=== PATIENT | male | born 1965 | race Caucasian/White ===

== ENCOUNTER 2019-10-11 15:52 | Emergency (ER) | payer OTHER ==
--- NOTE | 2019-10-11 15:54 | ERPHSYRPT ---
- History of Present Illness Time Seen by Provider: 10/11/19 15:54 Historian: patient Exam Limitations: no limitations Physician History: 54 y/o white male with no documented h/o cardiac dz. pt is currently being worked up by his pcp dr. Casillas and dr. gutierrez his guest relations associate for evaluation of dizziness. pt states he was feeling odd while sitting watching tv. his heart began racing. never had any chest pain. pt denies any recent stressors and does not have anxiety d/o. he did begin two new blood pressure medications of losartan and HCTZ. he began those meds last week Timing/Duration: today Activities at Onset: none Quality: other (palpitations) Chest Pain Radiation: no radiation Severity of Pain-Max: none Severity of Pain-Current: none Modifying Factors: Improves With: nothing Associated Symptoms: palpitations Prior Chest Pain/Cardiac Workup: no prior chest pain, echocardiography, recently seen/treated Nitro Today/Relief: no nitro taken today Aspirin Treatment Today: no aspirin today Allergies/Adverse Reactions: No Known Drug Allergies Allergy (Verified 10/11/19 16:08) Home Medications: Losartan Potassium 50 mg PO DAILY 10/11/19 [History] hydroCHLOROthiazide [Hydrochlorothiazide] 12.5 mg PO DAILY 10/11/19 [History] - Review of Systems Constitutional: No Symptoms Eyes: No Symptoms Ears, Nose, & Throat: No Symptoms Respiratory: No Symptoms Cardiac: Palpitations Abdominal/Gastrointestinal: No Symptoms Genitourinary Symptoms: No Symptoms Musculoskeletal: No Symptoms Skin: No Symptoms Neurological: No Symptoms Psychological: No Symptoms Endocrine: No Symptoms Hematologic/Lymphatic: No Symptoms Immunological/Allergic: No Symptoms All Other Systems: Reviewed and Negative - Past Medical History Pertinent Past Medical History: Yes Neurological History: No Pertinent History ENT History: No Pertinent History Cardiac History: Hypertension Respiratory History: No Pertinent History Endocrine Medical History: No Pertinent History Musculoskeletal History: No Pertinent History GI Medical History: No Pertinent History History: No Pertinent History Psycho-Social History: No Pertinent History Male Reproductive Disorders: No Pertinent History - Past Surgical History Neuro Surgical History: No Pertinent History Cardiac: No Pertinent History Respiratory: No Pertinent History Gastrointestinal: No Pertinent History Genitourinary: No Pertinent History Musculoskeletal: No Pertinent History Male Surgical History: No Pertinent History - Social History Smoking Status: Never smoker - Nursing Vital Signs Nursing Vital Signs: Initial Vital Signs Temperature 97.6 F 10/11/19 15:54 Pulse Rate 112 H 10/11/19 15:54 Respiratory Rate 26 H 10/11/19 15:54 Blood Pressure 159/99 10/11/19 15:54 O2 Sat by Pulse Oximetry 100 10/11/19 15:54 Pain Scale Pain Intensity 0 - Physical Exam General Appearance: no apparent distress, alert, anxiety Eye Exam: PERRL/EOMI, eyes nml inspection Ears, Nose, Throat Exam: normal ENT inspection, moist mucous membranes Neck Exam: normal inspection, non-tender, supple, full range of motion Respiratory Exam: normal breath sounds, lungs clear, airway intact, No chest tenderness, No respiratory distress Cardiovascular Exam: regular rate/rhythm, normal heart sounds, normal peripheral pulses Gastrointestinal/Abdomen Exam: soft, normal bowel sounds, No tenderness Rectal Exam: not done Back Exam: normal inspection, normal range of motion, No CVA tenderness, No vertebral tenderness Extremity Exam: normal inspection, normal range of motion, pelvis stable Neurologic Exam: alert, oriented x 3, cooperative, larriman helper II-XII nml as tested, nml cerebellar function, nml station & gait Skin Exam: normal color, warm, dry Lymphatic Exam: No adenopathy SpO2 Interpretation: normal O2 Delivery: Room Air - Course Nursing assessment & vital signs reviewed: Yes EKG Interpreted by Me: RATE ([id number]), Sinus Rhythm, NORMAL AXIS, NORMAL INTERVALS, NORMAL QRS, Non-specific ST Changes Ordered Tests: Active Orders 24 hr Category Date Time Status Dipper Fish STAT Care 10/11/19 15:58 Active EKG-ER Only STAT Care 10/11/19 15:57 Active IV Insertion STAT Care 10/11/19 15:57 Active Pulse Oximetry (ED) STAT Care 10/11/19 15:57 Active CHEST 1 VIEW (PORTABLE) Stat Exams 10/11/19 15:58 Taken CBC W DIFF Stat Lab 10/11/19 16:03 Completed CMP Stat Lab 10/11/19 16:03 Completed D-DIMER QUANTITATIVE Stat Lab 10/11/19 16:03 Completed NT PRO BNP Stat Lab 10/11/19 16:03 Completed PROTIME WITH INR Stat Lab 10/11/19 16:03 Completed TROPONIN Q3H Lab 10/11/19 16:03 Completed TROPONIN Q3H Lab 10/11/19 19:00 Ordered TROPONIN Q3H Lab 10/11/19 22:00 Ordered TROPONIN Q3H Lab 10/12/19 01:00 Ordered TROPONIN Q3H Lab 10/12/19 04:00 Ordered Medication Summary Discontinued Medications Generic Name Dose Route Start Last Admin Trade Name Mary PRN Reason Stop Dose Admin Aspirin 324 mg 10/11/19 15:57 10/11/19 16:20 Baby Aspirin 81 Mg Chew PO 10/11/19 15:58 324 mg STAT ONE Administration Lab/Rad Data: Laboratory Result Diagrams 10/11/19 16:03 10/11/19 16:03 Laboratory Results 10/11/19 10/11/19 10/11/19 Range/Units 16:03 16:03 16:03 WBC (4.0-10.5) K/mm3 RBC (4.1-5.6) M/mm3 Hgb (12.5-18.0) gm/dl Hct (42-50) % MCV (78-100) fl MCH (26-32) pg MCHC (32-36) g/dl RDW (11.5-14.0) % Plt Count (150-450) K/mm3 MPV (7.5-11.0) fl Gran % (36.0-66.0) % Eos # (Auto) (0-0.5) Absolute Lymphs (auto) (1.0-4.6) Absolute Monos (auto) (0.0-1.3) Lymphocytes % (24.0-44.0) % Monocytes % (0.0-12.0) % Eosinophils % (0.00-5.0) % Basophils % (0.0-0.4) % Absolute Granulocytes (1.4-6.9) Basophils # (0-0.4) PT 11.2 (8.83-12.87) SECONDS INR 0.99 (0.8-3.0) D-Dimer < 215 L (215-500) ng/mL Sodium 136 L (137-145) mmol/L Potassium 3.3 L (3.5-5.1) mmol/L Chloride 99 (98-107) mmol/L Carbon Dioxide 26 (22-30) mmol/L Anion Gap 13.9 (5-15) MEQ/L BUN 14 (9-20) mg/dL Creatinine 0.90 (0.66-1.25) mg/dL Estimated GFR > 60.0 ML/MIN Glucose 127 H (74-106) mg/dL Calcium 9.7 (8.4-10.2) mg/dL Total Bilirubin 0.70 (0.2-1.3) mg/dL AST 26 (17-59) U/L ALT 15 (0-50) U/L Alkaline Phosphatase 82 (38-126) U/L Troponin I < 0.012 (0.000-0.034) ng/mL NT-Pro-B Natriuret Pep 35.3 (0-900) pg/mL Serum Total Protein 7.7 (6.3-8.2) g/dL Albumin 4.6 (3.5-5.0) g/dL 10/11/19 Range/Units 16:03 WBC 7.2 (4.0-10.5) K/mm3 RBC 4.58 (4.1-5.6) M/mm3 Hgb 15.3 (12.5-18.0) gm/dl Hct 43.5 (42-50) % MCV 95.0 (78-100) fl MCH 33.4 H (26-32) pg MCHC 35.2 (32-36) g/dl RDW 11.7 (11.5-14.0) % Plt Count 227 (150-450) K/mm3 MPV 10.0 (7.5-11.0) fl Gran % 44.1 (36.0-66.0) % Eos # (Auto) 0.12 (0-0.5) Absolute Lymphs (auto) 3.17 (1.0-4.6) Absolute Monos (auto) 0.69 (0.0-1.3) Lymphocytes % 44.0 (24.0-44.0) % Monocytes % 9.6 (0.0-12.0) % Eosinophils % 1.7 (0.00-5.0) % Basophils % 0.6 (0.0-0.4) % Absolute Granulocytes 3.18 (1.4-6.9) Basophils # 0.04 (0-0.4) PT (8.83-12.87) SECONDS INR (0.8-3.0) D-Dimer (215-500) ng/mL Sodium (137-145) mmol/L Potassium (3.5-5.1) mmol/L Chloride (98-107) mmol/L Carbon Dioxide (22-30) mmol/L Anion Gap (5-15) MEQ/L BUN (9-20) mg/dL Creatinine (0.66-1.25) mg/dL Estimated GFR ML/MIN Glucose (74-106) mg/dL Calcium (8.4-10.2) mg/dL Total Bilirubin (0.2-1.3) mg/dL AST (17-59) U/L ALT (0-50) U/L Alkaline Phosphatase (38-126) U/L Troponin I (0.000-0.034) ng/mL NT-Pro-B Natriuret Pep (0-900) pg/mL Serum Total Protein (6.3-8.2) g/dL Albumin (3.5-5.0) g/dL - Progress Progress: improved Air Movement: good Progress Note: 10/11/19 16:59 cxr-no acute process Blood Culture(s) Obtained: No Antibiotics given: No Counseled pt/family regarding: lab results, diagnosis, need for follow-up, rad results - Departure Departure Disposition: Home Clinical Impression: Palpitations Condition: Stable Critical Care Time: No Additional Instructions: drink plenty of fluids. eat bananas, nuts and green leafy vegetables. continue your medications as prescribed. follow up with your primary doctor and guest relations associate for further management
[2019-10-11] MEDS ORDERED: BABY ASPIRIN 81 MG CHEW PO ONE (15:57)
[2019-10-11 16:11] LABS: Absolute Neutrophil Ct (ANC) 3.18 (1.4-6.9); BASOPHIL % 0.6 % (0.0-0.4); Basophil (Absolute #) 0.04 (0-0.4); Eosinophil % 1.7 % (0.00-5.0); Eosinophil (Absolute #) 0.12 (0-0.5); Hematocrit 43.5 % (42-50); Hemoglobin 15.3 gm/dl (12.5-18.0); Lymphocyte (Absolute #) 3.17 (1.0-4.6); Mean Corpuscular Hemoglobin 33.4 pg (26-32); Mean Corpuscular Hgb Concent. 35.2 g/dl (32-36); Monocyte (Absolute #) 0.69 (0.0-1.3); Monocytes % 9.6 % (0.0-12.0); Neutrophil % 44.1 % (36.0-66.0); Platelet Count 227 K/mm3 (150-450); Red Blood Count 4.58 M/mm3 (4.1-5.6); Red Cell Distribution Width 11.7 % (11.5-14.0); White Blood Count 7.2 K/mm3 (4.0-10.5)
[2019-10-11 16:29] LABS: INR 0.99 (0.8-3.0); PROTIME 11.2 SECONDS (8.83-12.87)
[2019-10-11 16:35] LABS: D-DIMER QUANTITATIVE < 215 ng/mL (215-500)
[2019-10-11 16:45] LABS: ALBUMIN 4.6 g/dL (3.5-5.0); ALKALINE PHOSPHATASE 82 U/L (38-126); ANION GAP 13.9 MEQ/L (5-15); BLOOD UREA NITROGEN 14 mg/dL (9-20); CHLORIDE 99 mmol/L (98-107); Calcium 9.7 mg/dL (8.4-10.2); Carbon Dioxide 26 mmol/L (22-30); Glucose 127 mg/dL (74-106); NT PRO BNP 35.3 pg/mL (0-900); Potassium 3.3 mmol/L (3.5-5.1); SGOT/AST 26 U/L (17-59); SGPT/ALT 15 U/L (0-50); SODIUM 136 mmol/L (137-145); Total Protein 7.7 g/dL (6.3-8.2)
[2019-10-11] MEDS ORDERED: Klor Con 10 MEQ PO ONE ×2 (16:59→17:08)
[2019-10-11] MEDS ORDERED: BABY ASPIRIN 81 MG CHEW ONE (17:08)
[2019-10-11 17:12] VITALS: BP 147/103; PULSE 89; O2SAT 98
--- NOTE | 2019-10-11 20:59 | XRAY ---
Indication: Chest pain. Comparison: None Portable chest demonstrates normal heart and lungs. Bony thorax intact.
== END 2019-10-11 17:12 | disposition home or self-care (01) ==
LOC: ED 15:52
DX: R00.2 Palpitations (principal)
CPT/HCPCS: 36000; 36415; 71045; 80053; 83880; 84484; 85025; 85379; 85610; 93005; 93041; 94760; 99284; A9270-GY